=== PATIENT | female | born 1980 | race African-American/Black ===

== ENCOUNTER 2016-10-24 11:17 | Emergency (ER) | payer OTHER ==
--- NOTE | ~2016-10-24 | CR94 ---
[facility]. [facility] A Service of [facility] & [facility] RADIOLOGY TEXT RESULTS PATIENT: SHEN SOTO LOCATION: SED : 78 UNIT #: [id number] AGE: [address]: Dalila Watt SEX: F ORDER DR: [id number] [address] [address] [id number] E MR#: [id number] Acc #: [id number] NAME: SHEN SOTO : 1980 SEX: F STUDY DATE/TIME: 10/24/2016 11:22 UNIT: SED ROOM: STUDY DESCRIPTION: CR Elbow Min 3 Views Rt Attending Physician: Dalila Watt Pa-C Ordering Physician: Ramin Salvador M.D. Primary Care Physician: No Primary Care Physician MEDICAL IMAGING REPORT This report is preliminary unless electronic signature is present. EXAM Right elbow HISTORY Right elbow pain after trauma 10 days ago. FINDINGS AP and lateral examination of the elbow shows satisfactory articulation of the humerus with the proximal radius and ulna. There is no identifiable fracture, dislocation, joint effusion, or radiopaque foreign body in the soft tissues. IMPRESSION Normal elbow. Dictated by... Guillermo Bennett M.D. THIS IS AN ELECTRONICALLY VERIFIED REPORT Guillermo Bennett M.D. at 10/25/2016 3:07 PM BI/govind TD: 10/25/2016 05:59 JOB #: [id number] MEDICAL IMAGING REPORT
[~2016-10-24 11:17] MED LIST: BACTRIM DS TABL1 TA2 PO; FLEXERIL10 MG PO; METRONIDAZOLE PO; MOTRIN600 M1 PO; NAPROSYN500 MG PO; NO MEDICATIONS; SKELAXIN PO; TYLENOL #3 PO
[2016-10-24] MEDS ORDERED: NAPROXEN PO (12:01)
== END 2016-10-24 12:05 | disposition home or self-care (01) ==
LOC: SED 11:17
DX: S50.01XA Contusion of right elbow, initial encounter (principal); F17.200 Nicotine dependence, unspecified, uncomplicated; W01.0XXA Fall on same level from slipping, tripping and stumbling without subsequent striking against object, initial encounter; Y92.89 Other specified places as the place of occurrence of the external cause
CPT/HCPCS: 73080; 99283